=== PATIENT | female | born 1960 | race Hispanic/Latino ===

== ENCOUNTER 2018-06-13 09:56 | Observation (INO) | payer BC ==
[~2018-06-13] VITALS: Ht 157.5 cm; Wt 76.2 kg
[~2018-06-13 09:56] MED LIST: GLYBURIDE-METF1 EAC1 PO
[2018-06-13] MEDS ORDERED: SODIUM CHLORIDE 0.9% 1000ML 1,000 ML IV STA (10:21)
[2018-06-13 10:27] LABS: BASOPHILS # (AUTO) 0.1 (0.0-0.1); BASOPHILS % 1.3 % (0.0-1.0); EOSINOPHILS # (AUTO) 0.2 (0.0-0.4); EOSINOPHILS % 2.4 % (0.0-6.0); HEMATOCRIT 41.6 % (34.2-44.1); HEMOGLOBIN 14.4 g/dL (12.0-16.0); LYMPHOCYTES % 23.9 % (18.0-39.1); MEAN CORPUSCULAR HEMOGLOBIN 31.1 pg (28-32); MEAN CORPUSCULAR HGB CONC 34.6 g/dL (31-35); MEAN CORPUSCULAR VOLUME 89.8 fL (81-99); MONOCYTES # (AUTO) 0.7 (0.2-0.8); MONOCYTES % 8.1 % (4.4-11.3); NEUTROPHILS # (AUTO) 5.4 (2.1-6.9); NEUTROPHILS % 63.9 % (38.7-80.0); PLATELET COUNT 204 x10e3/uL (140-360); RED BLOOD COUNT 4.63 x10e6/uL (3.6-5.1); RED CELL DISTRIBUTION WIDTH 12.2 % (11.7-14.4)
[2018-06-13] MEDS ORDERED: ASPIRIN 81 MG CHEW TAB PO ONE (10:30)
[2018-06-13 10:35] LABS: INR 1.03; PROTHROMBIN TIME 12.7 seconds (11.9-14.5)
[2018-06-13 10:36] LABS: PARTIAL THROMBOPLASTIN TIME 27.3 seconds (23.8-35.5)
[2018-06-13 10:45] LABS: ALANINE AMINOTRANSFERASE 83 IU/L (0-55); ALBUMIN 3.6 g/dL (3.5-5.0); ALBUMIN/GLOBULIN RATIO 0.8 (0.8-2.0); ALKALINE PHOSPHATASE 129 IU/L (40-150); BLOOD UREA NITROGEN 23 mg/dL (7-26); BUN/CREATININE RATIO 24 (6-25); CALCIUM 9.7 mg/dL (8.4-10.2); CARBON DIOXIDE 24 mmol/L (22-29); CHLORIDE 100 mmol/L (98-107); CREATINE KINASE 125 IU/L (29-168); CREATININE, SERUM 0.97 mg/dL (0.57-1.11); EST GLOMERULAR FILTRATION RATE 59 ML/MIN (60-); GLUCOSE 160 mg/dL (74-118); SODIUM 137 mmol/L (136-145)
[2018-06-13] MEDS ORDERED: METOPROLOL TARTRATE INJ 1 MG/ML VIAL IV ONE ×2 (11:30→13:15)
--- NOTE | 2018-06-13 11:36 | Diagnostic Imaging Report ---
PROCEDURE: A single AP view of the chest. COMPARISON: None. INDICATIONS: PALPITATIONS FINDINGS: Lines/tubes: None. Lungs: Low lung volumes. No focal consolidation. Pleura: There is no pleural effusion or pneumothorax. Heart and mediastinum: The cardiac silhouette is mild prominence on this AP view. Bones: No acute bony abnormality. IMPRESSION: Limited by shallow inspiration. No definite focal consolidation. Dictated by: Viktor Lynch M.D. on 06/13/2018 at 11:42 Electronically approved by: Viktor Lynch M.D. on 06/13/2018 at 11:42
--- NOTE | 2018-06-13 12:45 | Diagnostic Imaging Report ---
EXAM: CT Chest WITH contrast (PE Protocol) INDICATION: \S\chest pain, SOB and tachycardia + d-dimer \S\[id number] \S\1200 \S\Y COMPARISON: None TECHNIQUE: Chest was scanned utilizing a multidetector helical scanner from the lung apex through the level of the diaphragm after administration of IV contrast. Thin section reconstructions were obtained with special concentration on the pulmonary arteries. Coronal and sagittal reformations were obtained. Pulmonary embolism protocol was performed. IV CONTRAST: 100 mL of Isovue-370 COMPLICATIONS: None RADIATION DOSE: Total DLP: 481.02 mGy*cm Estimated effective dose: (DLP x 0.014 x size factor) mSv CTDIvol has been reviewed. It is below the limits set by the Radiation Protocol Committee (RPC). FINDINGS: LINES/ TUBES: None. LUNGS AND AIRWAYS: No filling defect is identified within the pulmonary arteries to the segmental level. Mild background lung haziness, suggestive of mild interstitial edema. Lingular and left base linear atelectasis/scarring. Airways are normal. PLEURA: The pleural spaces are clear. HEART AND MEDIASTINUM: The thyroid gland is normal. No mediastinal, hilar or axillary lymphadenopathy. The heart is normal in size.. There is no pericardial effusion. . Main pulmonary artery measures 3.2 cm in diameter, suggestive of pulmonary hypertension. Atherosclerotic calcification of coronary arteries. UPPER ABDOMEN: Cholecystectomy. Mild splenomegaly. BONES: The visualized bony thorax is within normal limits. SOFT TISSUES: Bilateral breast nodules and calcifications. IMPRESSION: 1. No pulmonary emboli. 2. Mild background lung haziness, suggestive of mild interstitial edema. 3. Bilateral breast nodules and calcifications. Recommend correlation with mammography. Signed by: Dr. Viktor Lynch MD on 06/13/2018 12:41 PM
[2018-06-13] MEDS ORDERED: ONDANSETRON HCL INJ 2 MG/ML VIAL IV PRN (13:45)
[2018-06-13] MEDS ORDERED: DEXTROSE 50% SYRINGE 50 ML IV PRN (13:45)
[2018-06-13] MEDS ORDERED: MORPHINE SULFATE 2 MG/ML SYR IV PRN (13:45)
[2018-06-13] MEDS: METOPROLOL TARTRATE 50 MG TAB PO SCH ×3 (13:46→19:45)
[2018-06-13] MEDS ORDERED: SODIUM CHLORIDE 0.9% 1000ML 1,000 ML IV SCH (14:15)
[2018-06-13] MEDS: INSULIN REGULAR, HUMAN 100 UNIT/1 ML 3ML VIAL SQ SCH ×2 (16:30→20:41)
[2018-06-13 17:14] VITALS: BP 123/77
[2018-06-13] MEDS ORDERED: ZESTORETIC 10-1 EAC1 (17:50)
[2018-06-13] MEDS ORDERED: GABAPENTIN600 MG (17:50)
[2018-06-13] MEDS ORDERED: TEMAZEPAM15 MG (17:50)
[2018-06-13] MEDS ORDERED: XIGDUO XR (17:52)
[2018-06-13 19:23] LABS: CREATINE KINASE 132 IU/L (29-168)
[2018-06-13] MEDS ORDERED: SODIUM CHLORIDE 0.9% 1000ML 1,000 ML SCH (19:30)
[2018-06-13] MEDS: SODIUM CHLORIDE 0.9% 1000ML 1,000 ML SCH (19:45)
[2018-06-13 20:00] VITALS: BP 144/92
--- NOTE | 2018-06-13 21:05 | Consultation ---
DATE OF CONSULTATION: June 13, 2018 CARDIAC CONSULTATION REASON FOR CONSULTATION: Tachycardia, shortness of breath, chest pressure, chest tightness. HISTORY: Delightful 58-year-old lady, who is known with longstanding history of diabetes mellitus for the last 27 years hypertension for the same time. For a month or so, she noted episodic chest pressure, chest tightness with tachycardia. She felt palpitation and she felt chest pressure, chest tightness. This was repetitive. Today, she felt dizzy and she has felt unwell. She came to the emergency room. She was tachycardiac with heart rate of 140. She was given 5 mg Lopressor, 2 g of IV fluid with no relief in her tachycardia. She is admitted for further management. Cardiac consultation is obtained. Her first set of cardiac enzymes is normal. Her BNP is normal. Her TSH was also normal. D-dimer was mildly elevated. CT scan was done, which showed no evidence of pulmonary embolism, coronary calcifications are noted. Cardiac consultation is obtained. I visited with the patient, who she denied having any chest pain now. She is still feeling a little bit weak. She came in with history of 1 month's duration. Her symptoms mainly consistent of palpitation, easy fatigability. She needs to sit and to relax. There is no history of definite anginal chest pain. There is no history of recent travel. There is no history of pleuritic chest pain. There is no cough, no hemoptysis. REVIEW OF SYSTEMS: Extensive to all systems. Will be summarized for clarity. CARDIAC: As per above. PULMONARY: No cough, no hemoptysis as described above. GI: No hematemesis, no melena. : No hematuria, no dysuria. NEUROMUSCULAR: No seizure activity, no weakness, no headaches. GENERAL: Patient is very weak. SOCIAL HISTORY: She is nonsmoker. She is [id number]. She does have excellent family support. She works at [employer]. HOME MEDICATIONS: Includes 1. Gabapentin 600 mg a day. 2. Lisinopril/hydrochlorothiazide 10 and 12.5 one tablet a day. 3. Xigduo 10 per 1000 one tablet twice a day. 4. Temazepam p.r.n. ALLERGIES: NONE. PAST MEDICAL HISTORY 1. Diabetes mellitus for 27 years. 2. Hypertension for the same time. 3. Right and left carpal tunnel surgery. 4. Cholecystectomy. 5. Hysterectomy. PHYSICAL EXAM VITALS: Height of 5'2. Weight of 168 pounds. Blood pressure 120/70. Heart rate of 140. Respiratory rate of 18. Temperature of 98 Fahrenheit. HEENT: Pupils are equal reactive. NECK: No elevation of jugular venous pulsation. No bruit. CHEST: Clear to auscultation and percussion. HEART: PMI 5th left intercostal space. Normal 1st and 2nd heart sounds. ABDOMEN: Soft with good bowel sounds. EXTREMITIES: No cyanosis. No clubbing. No edema. NEUROLOGIC: Awake, alert, oriented. No motor or sensory deficit. LABORATORY DATA: Sodium of 147, potassium of 4, BUN 23, creatinine of 0.97. Glucose of 160. White blood cell count of 8.4 hemoglobin 14.4, hematocrit 42%, platelet count of 204,000. BNP of only 74. TSH is normal at 1.5. D-dimer of 0.54. CT of chest showed no PE, calcified coronary, calcification is noted in both breasts. IMPRESSIONS AND PLAN 1. Tachycardia. No clear-cut etiology. It looks like inappropriate sinus tachycardia. Atrial flutter is a very high probability. Another probably is atrioventricular lisa re-entry tachycardia. 2. Hypertension. 3. Diabetes mellitus. 4. Patient definitely is a prime to have coronary artery disease furthermore this further confirmed by the coronary calcification on her computerized axial tomography scan. 5. Peripheral neuropathy. Cardiac-cantu, will maintain patient on aspirin, will maintain patient on beta-nahid, will give patient IV fluid. Will repeat her echocardiogram. Will repeat her cardiac enzymes. Will repeat her lab. Pending on her course, further steps to be done. An echocardiogram is also ordered. Differential diagnoses are discussed and explained at length to the patient, her daughter, and her son, and [id number] at bedside. Questions are answered. Job#: [id number] CQ
[2018-06-13 21:22] LABS: BILIRUBIN,URINE NEGATIVE (NEGATIVE); CLARITY,URINE CLEAR (CLEAR); COLOR,URINE YELLOW (YELLOW); KETONES,URINE NEGATIVE (NEGATIVE); LEUKOCYTE ESTERASE ,URINE NEGATIVE (NEGATIVE); NITRITE,URINE NEGATIVE (NEGATIVE); PROTEIN,URINE DIPSTICK NEGATIVE (NEGATIVE); URINE UROBILINOGEN 0.2 mg/dL (0.2 - 1)
[2018-06-13 21:40] LABS: BACTERIA,URINE FEW /HPF; EPITHELIAL CELLS,URINE FEW /LPF
[2018-06-13 22:05] VITALS: BP 144/92
[2018-06-13 22:06] VITALS: BP 144/92
[2018-06-14] VITALS: BP 108/72
[2018-06-14] MEDS: METOPROLOL TARTRATE 50 MG TAB PO SCH ×2 (01:22→05:52)
[2018-06-14 04:00] VITALS: BP 103/59
[2018-06-14 05:20] LABS: BASOPHILS # (AUTO) 0.1 (0.0-0.1); EOSINOPHILS # (AUTO) 0.3 (0.0-0.4); EOSINOPHILS % 3.4 % (0.0-6.0); HEMATOCRIT 38.6 % (34.2-44.1); LYMPHOCYTES # (AUTO) 2.5 (1.0-3.2); LYMPHOCYTES % 31.9 % (18.0-39.1); MEAN CORPUSCULAR HEMOGLOBIN 31.3 pg (28-32); MEAN CORPUSCULAR HGB CONC 33.7 g/dL (31-35); MEAN CORPUSCULAR VOLUME 92.8 fL (81-99); MONOCYTES # (AUTO) 0.8 (0.2-0.8); MONOCYTES % 10.3 % (4.4-11.3); NEUTROPHILS # (AUTO) 4.1 (2.1-6.9); PLATELET COUNT 209 x10e3/uL (140-360); RED BLOOD COUNT 4.16 x10e6/uL (3.6-5.1); RED CELL DISTRIBUTION WIDTH 12.4 % (11.7-14.4)
[2018-06-14] MEDS: SODIUM CHLORIDE 0.9% 1000ML 1,000 ML SCH (05:52)
[2018-06-14 06:03] LABS: CREATINE KINASE MB 0.9 ng/mL (0-5.0)
--- NOTE | 2018-06-14 06:06 | Diagnostic Imaging Report ---
EXAMINATION: CHEST SINGLE (PORTABLE) INDICATION: Chest pain. COMPARISON: 06/13/2018, CT of the chest FINDINGS: TUBES and LINES: None. LUNGS: Lungs are well inflated. Lungs are clear. There is no evidence of pneumonia or pulmonary edema. PLEURA: No pleural effusion or pneumothorax. HEART AND MEDIASTINUM: The cardiomediastinal silhouette is unremarkable. BONES AND SOFT TISSUES: No acute osseous lesion. Soft tissues are unremarkable. UPPER ABDOMEN: No free air under the diaphragm. IMPRESSION: No acute thoracic abnormality. Signed by: Dr. Torey Patton M.D. on 06/14/2018 6:03 AM
[2018-06-14 06:18] LABS: ALANINE AMINOTRANSFERASE 65 IU/L (0-55); ALBUMIN 3.1 g/dL (3.5-5.0); ALBUMIN/GLOBULIN RATIO 0.8 (0.8-2.0); ALKALINE PHOSPHATASE 83 IU/L (40-150); BLOOD UREA NITROGEN 20 mg/dL (7-26); BUN/CREATININE RATIO 25 (6-25); CALCIUM 8.9 mg/dL (8.4-10.2); CARBON DIOXIDE 25 mmol/L (22-29); CHLORIDE 102 mmol/L (98-107); CREATININE, SERUM 0.81 mg/dL (0.57-1.11); EST GLOMERULAR FILTRATION RATE > 60 ML/MIN (60-); GLUCOSE 113 mg/dL (74-118); SODIUM 135 mmol/L (136-145)
[2018-06-14 06:31] LABS: CHOL/HDL RATIO 2.6 (3.0-3.6)
[2018-06-14] MEDS: INSULIN REGULAR, HUMAN 100 UNIT/1 ML 3ML VIAL SQ SCH (07:30)
[2018-06-14] MEDS ORDERED: IOPAMIDOL 370 MG/ML 200 ML INFUS..BTL INJ ONE (08:30)
[2018-06-14] MEDS ORDERED: SODIUM CHLORIDE 0.9% 50ML 50 ML ONE (08:30)
[2018-06-14 09:30] VITALS: BP 111/64
[2018-06-14] MEDS ORDERED: METOPROLOL TART50 MG PO (10:34)
[2018-06-14] MEDS ORDERED: ASPIR 8181 MG PO (10:41)
[2018-06-14 11:30] VITALS: BP 151/71
== END 2018-06-14 12:21 | disposition home or self-care (01) ==
LOC: ER 09:56 → ERHOLD 13:35 → IMCU 16:46
PROVIDERS: ADMIT Family Medicine; ATTEND Family Medicine
DX: R07.89 Other chest pain (principal); I47.1 Supraventricular tachycardia; R94.31 Abnormal electrocardiogram [ECG] [EKG]; I10 Essential (primary) hypertension; E11.42 Type 2 diabetes mellitus with diabetic polyneuropathy; R42 Dizziness and giddiness; E78.5 Hyperlipidemia, unspecified; Z83.3 Family history of diabetes mellitus; Z82.49 Family history of ischemic heart disease and other diseases of the circulatory system
CPT/HCPCS: 36415 ×2; 71045 ×2; 71260; 80053 ×2; 80061; 81001; 82550 ×2; 82553 ×2; 82948 ×2; 83880; 84443; 84484 ×2; 85025 ×2; 85379; 85610; 85730; 93005; 93306; 99284; G0378 ×2; J2405; J7030 ×2; Q9967

== ENCOUNTER 2019-12-05 02:42 | Emergency (ER) | payer BC ==
[~2019-12-05] VITALS: Ht 157.5 cm; Wt 76.2 kg
[~2019-12-05 02:42] MED LIST changes: +ASPIR 8181 MG PO; +GABAPENTIN600 MG; +METOPROLOL TART50 MG PO; +TEMAZEPAM15 MG; +XIGDUO XR; +ZESTORETIC 10-1 EAC1
[2019-12-05] MEDS ORDERED: ONDANSETRON HCL INJ 2MG/ML 2ML 2 MG/ML VIAL IV STA (02:58)
[2019-12-05] MEDS ORDERED: MECLIZINE HCL 12.5 MG TAB PO ONE (03:00)
[2019-12-05 03:32] LABS: HEMATOCRIT 43.8 % (34.2-44.1); HEMOGLOBIN 15.5 g/dL (12.0-16.0); MEAN CORPUSCULAR HEMOGLOBIN 32.1 pg (28-32); MEAN CORPUSCULAR HGB CONC 35.4 g/dL (31-35); MEAN CORPUSCULAR VOLUME 90.7 fL (81-99); NEUTROPHILS % 68.7 % (38.7-80.0); PLATELET COUNT 252 x10e3/uL (140-360); RED BLOOD COUNT 4.83 x10e6/uL (3.6-5.1); RED CELL DISTRIBUTION WIDTH 11.9 % (11.7-14.4)
[2019-12-05 03:33] LABS: BASOPHILS # (AUTO) 0.1 (0.0-0.1); BASOPHILS % 1.1 % (0.0-1.0); EOSINOPHILS # (AUTO) 0.2 (0.0-0.4); EOSINOPHILS % 1.8 % (0.0-6.0); LYMPHOCYTES # (AUTO) 2.4 (1.0-3.2); LYMPHOCYTES % 18.4 % (18.0-39.1); MONOCYTES # (AUTO) 1.3 (0.2-0.8); MONOCYTES % 9.8 % (4.4-11.3); NEUTROPHILS # (AUTO) 8.9 (2.1-6.9)
--- NOTE | 2019-12-05 03:50 | Diagnostic Imaging Report ---
History:Dizziness, weakness Comparison studies:None Technique: Axial images were obtained from the skull base to the vertex. Coronal and sagittal images reconstructed from the axial data. Intravenous contrast: None Dose modulation, iterative reconstruction, and/or weight based adjustment of the mA/kV was utilized to reduce the radiation dose to as low as reasonably achievable. Findings: Scalp/skull: No abnormalities. Extra-axial spaces: Small left retrovermian arachnoid cyst. No fluid collections. Brain sulci: Age-appropriate. Ventricles: Age appropriate. No hydrocephalus. Parenchyma: No abnormal densities. No masses, hemorrhage, acute or chronic cortical vascular insults. Sellar/suprasellar region: No abnormalities. Craniocervical junction: Patent foramen magnum. No Chiari one malformation. Incidental findings: Atherosclerotic calcifications in the carotid siphons and vertebral arteries . Impression: No acute abnormalities. Signed by: DR Ricci Hurtado M.D. on 12/05/2019 3:48 AM
[2019-12-05 03:51] LABS: SODIUM 132 mmol/L (136-145)
[2019-12-05 03:52] LABS: ALANINE AMINOTRANSFERASE 93 IU/L (0-55); ALBUMIN 4.2 g/dL (3.5-5.0); ANION GAP 21.9 mmol/L (8-16); BLOOD UREA NITROGEN 28 mg/dL (7-26); BUN/CREATININE RATIO 17 (6-25); CALCIUM 9.7 mg/dL (8.4-10.2); CARBON DIOXIDE 24 mmol/L (22-29); CHLORIDE 90 mmol/L (98-107); CREATININE, SERUM 1.66 mg/dL (0.57-1.11); EST GLOMERULAR FILTRATION RATE 32 ML/MIN (60-); GLUCOSE 169 mg/dL (74-118); POTASSIUM 3.9 mmol/L (3.5-5.1)
[2019-12-05 03:53] LABS: ALKALINE PHOSPHATASE 94 IU/L (40-150); CREATINE KINASE 75 IU/L (29-168)
[2019-12-05] MEDS ORDERED: SODIUM CHLORIDE 0.9% 1000ML 1,000 ML IV ONE (04:15)
[2019-12-05 05:29] LABS: CLARITY,URINE SL CLOUDY (CLEAR); COLOR,URINE YELLOW (YELLOW)
[2019-12-05 05:30] LABS: KETONES,URINE NEGATIVE (NEGATIVE); LEUKOCYTE ESTERASE ,URINE MODERATE (NEGATIVE); NITRITE,URINE NEGATIVE (NEGATIVE); PROTEIN,URINE DIPSTICK TRACE (NEGATIVE); URINE UROBILINOGEN 0.2 mg/dL (0.2 - 1)
[2019-12-05 05:31] LABS: BILIRUBIN,URINE MODERATE (NEGATIVE)
[2019-12-05 05:40] LABS: BACTERIA,URINE FEW /HPF; EPITHELIAL CELLS,URINE FEW /LPF; WBC,URINE (MAN) 21-50 /HPF (0-5)
== END 2019-12-05 06:09 | disposition home or self-care (01) ==
LOC: ER 02:42
DX: H81.4 Vertigo of central origin (principal); R11.2 Nausea with vomiting, unspecified; N39.0 Urinary tract infection, site not specified
CPT/HCPCS: 36415; 70450; 80053; 81001; 82550; 82553; 84484; 85025; 93005; 99284; J2405; J7030; J8597

== ENCOUNTER 2019-12-21 09:31 | Observation (INO) | payer BC ==
[~2019-12-21] VITALS: Ht 157.5 cm; Wt 72.6 kg
[2019-12-21] MEDS ORDERED: SODIUM CHLORIDE 0.9% 1000ML 1,000 ML IV STA (09:36)
[2019-12-21 10:06] LABS: BASOPHILS # (AUTO) 0.1 (0.0-0.1); BASOPHILS % 0.7 % (0.0-1.0); EOSINOPHILS # (AUTO) 0.1 (0.0-0.4); HEMATOCRIT 44.2 % (34.2-44.1); HEMOGLOBIN 15.3 g/dL (12.0-16.0); LYMPHOCYTES % 16.9 % (18.0-39.1); MEAN CORPUSCULAR HEMOGLOBIN 31.4 pg (28-32); MEAN CORPUSCULAR HGB CONC 34.6 g/dL (31-35); MEAN CORPUSCULAR VOLUME 90.8 fL (81-99); MONOCYTES % 8.2 % (4.4-11.3); NEUTROPHILS # (AUTO) 8.4 (2.1-6.9); NEUTROPHILS % 72.9 % (38.7-80.0); PLATELET COUNT 242 x10e3/uL (140-360); RED BLOOD COUNT 4.87 x10e6/uL (3.6-5.1); RED CELL DISTRIBUTION WIDTH 11.4 % (11.7-14.4)
[2019-12-21 10:51] LABS: ALBUMIN 4.1 g/dL (3.5-5.0); ANION GAP 16.6 mmol/L (8-16); CALCIUM 9.7 mg/dL (8.4-10.2); CREATININE, SERUM 1.26 mg/dL (0.57-1.11); POTASSIUM 3.6 mmol/L (3.5-5.1)
[2019-12-21 11:01] LABS: CREATINE KINASE MB 1.3 ng/mL (0-5.0)
--- NOTE | 2019-12-21 12:19 | Diagnostic Imaging Report ---
CT BRAIN WO HISTORY: Syncope COMPARISON: Head CT 12/05/2019 TECHNIQUE: Noncontrast axial scans were obtained from skull base to the vertex. Coronal and sagittal reconstructions obtained from the axial data. One or more of the following dose reduction techniques were used: Automated exposure control, adjustment of the mA and/or kV according to patient size, and/or utilization of iterative reconstruction technique. DISCUSSION: Scalp/Skull: Unremarkable. Brain sulci: Appropriate for patient's age. Ventricles: Normal in size and configuration. No hydrocephalus. Extra-axial spaces: Small medial left retrocerebellar arachnoid cyst has not significantly changed; there is no significant mass effect. No additional masses or fluid collections. Carotid siphon and vertebral artery calcified effusions are present. Parenchyma: Mild periventricular white matter hypodensities are likely chronic microvascular ischemic changes. Otherwise, no mass, hemorrhage, or large vascular territory acute infarct. Dural sinuses: No abnormal densities. Sellar/Suprasellar region: Intact. Skull base: Intact. Incidental findings: None. IMPRESSION: 1. No acute intracranial abnormalities. 2. Mild supratentorial chronic microvascular ischemic change. Signed by: Dr. Bob Dominguez M.D. on 12/21/2019 12:16 PM
--- NOTE | 2019-12-21 12:30 | Diagnostic Imaging Report ---
Exam: CT chest Clinical history: Syncope Technique: Helical images of the chest were obtained after IV contrast administration DOSE REDUCTION: The exams was performed according to the departmental dose-optimization program which includes automated exposure control, adjustment of the mA and/or kV according to patient size and/or use of iterative reconstruction technique. Findings: There is no evidence of early consolidation, nodule, edema, or pneumothorax. Mild bibasilar atelectasis are noted. The tracheal bronchial tree is clear. The cardiac size is within normal limits. The great vessels are normal in caliber and configuration. There is no evidence of mediastinal or hilar lymphadenopathy. A 1.5 cm soft tissue density nodule is noted in the right breast. Correlation with mammography is recommended. The visualized upper abdominal solid organs are unremarkable. Impression: 1. There is a 1.5 cm right breast nodule as described. Correlation with mammography is recommended Signed by: Dr. Rodrigo Cortes MD on 12/21/2019 12:28 PM
--- NOTE | 2019-12-21 13:25 | NUR ---
received report from PAINTING CONTRACTOR; awaiting pt's arrival to room 289.
--- NOTE | 2019-12-21 13:58 | NUR ---
pt arrived to room 289, family at bedside. pt awake, alert, no signs of distress. pt ambulated without difficulty from stretcher to bed with RN at bedside.
[2019-12-21 14:01] VITALS: BP 132/89
[2019-12-21 14:02] VITALS: BP_SYST 130; BP_SYST 132; BP_DIAS 85; BP_DIAS 89
--- NOTE | 2019-12-21 14:38 | Diagnostic Imaging Report ---
CT LUMBAR SPINE WO HISTORY: Low back pain COMPARISON: None. TECHNIQUE: Axial CT images of the lumbar spine were obtained without contrast. Coronal and sagittal reconstructions obtained from the axial data. One or more of the following dose reduction techniques were used: Automated exposure control, adjustment of the mA and/or kV according to patient size, and/or utilization of iterative reconstruction technique. DISCUSSION: There are 5 nonrib-bearing lumbar vertebral bodies. Lumbar lordosis is preserved. There is no significant scoliosis or subluxation. There are mildly displaced fractures of the left L1, left L2, and left L3 transverse processes. No other fracture, compression deformity, or destructive osseous lesion is seen. No gross spinal canal mass is seen. The paravertebral and paraspinal soft tissues are unremarkable. Mild multilevel spondylosis is present without gross canal or foraminal stenosis. Mild bilateral sacroiliac degenerative changes are present as well. Contrast is seen in the renal collecting systems. Mildly distended, mildly opacified bladder is partially imaged. Aortoiliac calcified atherosclerosis is present. IMPRESSION: 1. Mildly displaced fractures of the left L1, left L2, and left L3 transverse processes. 2. No other acute osseous abnormalities. 3. Mild multilevel spondylosis. Signed by: Dr. Bob Dominguez M.D. on 12/21/2019 2:35 PM
[2019-12-21] MEDS ORDERED: JANUMET 50-1,01 EACH PO (15:31)
[2019-12-21] MEDS ORDERED: PANTOPRAZOLE SO40 MG PO (15:31)
[2019-12-21] MEDS ORDERED: PROTRIPTYLINE H10 MG PO (15:31)
[2019-12-21 16:00] VITALS: BP 132/89
[2019-12-21 16:11] LABS: CREATINE KINASE MB 1.2 ng/mL (0-5.0)
[2019-12-21 16:44] LABS: FREE THYROXINE INDEX 3.3156 (1.4-3.8); THYROID STIMULATING HORMONE 1.512 uIU/mL (0.350-4.940)
[2019-12-21] MEDS: METOPROLOL TARTRATE 50 MG TAB PO SCH (18:04)
[2019-12-21] MEDS: SODIUM CHLORIDE 0.9% 1000ML 1,000 ML IV SCH (18:04)
[2019-12-21] MEDS: KETOROLAC TROMETHAMINE 30 MG/ML VIAL IV PRN (18:05)
--- NOTE | 2019-12-21 19:05 | NUR ---
RECEIVED THE PATIENT IN REPORT.STABLE CONDITION.
[2019-12-21] MEDS ORDERED: SODIUM CHLORIDE 0.9% 50ML 50 ML ONE (19:54)
[2019-12-21] MEDS ORDERED: IOPAMIDOL 370 MG/ML 200 ML INFUS..BTL INJ ONE (19:55)
[2019-12-21 20:02] VITALS: BP 135/75
[2019-12-21 20:04] LABS: CREATINE KINASE MB 1.2 ng/mL (0-5.0)
[2019-12-21 20:29] VITALS: BP 135/75
--- NOTE | 2019-12-21 21:53 | History and Physical ---
CHIEF COMPLAINT: A 59-year-old female who comes with falls and syncopal episode. HISTORY OF PRESENTING ILLNESS: Ms. Leigh Woodward is with history of diabetes mellitus, hypertension, history of SVT, who was in the usual state of health until the patient had started with falls, this happened about six months ago, but has been more frequent. In the last one week, the patient has fall twice. The patient also has been recently started on protriptyline for her sciatica by her neurologist. CURRENT MEDICATIONS: 1. Protriptyline 10 mg 3 times a day. 2. Metoprolol 50 mg twice a day. 3. daily. 4. Temazepam 50 mg at nighttime. She also take Trulicity injections once a week. PAST SURGICAL HISTORY: History of hysterectomy and gallbladder removal. SOCIAL HISTORY: No EtOH, no IV drug abuse. The patient has been feeling little bit weak since last three weeks according to . REVIEW OF SYSTEMS: Negative for chest pain. No shortness of breath. No nausea. No vomiting. No diarrhea. No constipation. No rectal bleeding. No hematochezia. No hematemesis. No palpitation. No blurry vision. No diplopia. Positive for falls. The patient has no loss of consciousness with any episodes. The patient also complains of some back pain from the falls. ALLERGIES: NO DRUG ALLERGIES NOTED. PHYSICAL EXAMINATION: VITAL SIGNS: Temperature is 98.3, pulse of 84, respirations of 18, blood pressure is 132/89, pulse oximetry of 98, O2 on room air. HEENT: Normocephalic, atraumatic. Pupils are reactive. No nystagmus present. CVS: S1 and S2 normal. Regular rate and rhythm. No murmurs present. ABDOMEN: Nontender, nondistended. EXTREMITIES: No clubbing, no cyanosis, no edema. NEUROLOGICAL: Alert and oriented x3. The patient's cranial nerves normal. Cerebellar signs are positive. Strength is normal. Reflexes are normal too. LABORATORY [place]: [place] [address], hemoglobin of 15.3, hematocrit of 44.2 and slight left shift present. Chemistry, sodium 135, potassium is 3.6, BUN of 25, creatinine of 1.26, and glucose of 160. IMAGING STUDIES: Lumbar CT shows mildly displaced fracture of the L1, L2, L3 transverse process from the fall. A CT of the chest shows 1.5 cm right breast nodule, correlation with mammogram not wanted and CT of the brain shows no acute intracranial abnormalities, mild supratentorial chronic microvascular ischemic changes. ASSESSMENT: Ms. Leigh Woodward with. 1. Syncopal episodes. 2. Dizziness. 3. History of supraventricular tachycardia. 4. Hypertension. 5. Diabetes mellitus. 6. History of low back pain. 7. Transfers process fractures of L1, L2 and L3. PLAN: A consult with Cardiology has been done. We will order an echocardiogram, MRI of the brain and MRA of the neck will be done. We will take her off for protriptyline at this point of time, insulin sliding scale for diabetes mellitus. Restart her hypertensive medication and for SVT. Further recommendation per clinical course. We will continue monitor the patient and neuro checks will be done and also vital signs routinely will be checked. Labs will be ordered. The patient also has acute on chronic renal failure. We will go ahead and hydrate the patient about 100 mL an hour of normal saline for about 2 L. Further recommendation per clinical course. MD KP LedezmaJ/MODL /[id number]
[2019-12-21 23:45] VITALS: BP 151/83
--- NOTE | 2019-12-22 00:56 | Diagnostic Imaging Report ---
EXAMINATION: MR angiogram of the [place] and Neck CLINICAL HISTORY: Syncope, worsening dizziness. COMPARISON: None available TECHNIQUE: 3D TOF and 2D-TOF images were obtained of the brain and neck. MIP images of the arteries were isolated into anterior-posterior and right and left groups respectively. The head source images, reformatted axial and coronal images, and customer account representative projections of the MIP images through 180 degrees of rotation and tumbling of the brain were reviewed. The neck source images and customer account representative projections of the MIP images through 180 degrees of rotation of the neck were reviewed MRA OF THE [place] : The distal internal carotid, distal vertebral, basilar, and cerebral arteries are patent. No significant stenosis, occlusion, aneurysm, or arteriovenous malformation is seen. Anatomic variation: Anterior Communicating Artery: Patent Posterior Communicating Arteries: Patent on the left, not well-visualized on the right. Vertebral arteries: Codominant MRA OF THE NECK: If present, stenosis of the carotid bulbs is measured based on NASCET criteria i.e area of maximum stenosis compared to the cervical ICA distal to the bulb. Right Carotid Artery: The common carotid, carotid bulb, internal and external carotid arteries at the level of the neck are normal in caliber, and patent, no evidence of stenoses. Left Carotid Artery: The common carotid, carotid bulb, internal and external carotid arteries at the level of the neck are normal in caliber, and patent, no evidence of stenoses. Vertebral Arteries: Both are normal in morphology and caliber. Both are codominant. No significant stenosis is seen. IMPRESSION: 1. Normal MR angiography of the head 2. Normal MR angiogram of the neck. Signed by: Dr. Omayra Oconnor M.D. on 12/22/2019 12:53 AM
--- NOTE | 2019-12-22 00:56 | Diagnostic Imaging Report ---
EXAMINATION: MR angiogram of the [place] and Neck CLINICAL HISTORY: Syncope, worsening dizziness. COMPARISON: None available TECHNIQUE: 3D TOF and 2D-TOF images were obtained of the brain and neck. MIP images of the arteries were isolated into anterior-posterior and right and left groups respectively. The head source images, reformatted axial and coronal images, and outside energy sales representatives projections of the MIP images through 180 degrees of rotation and tumbling of the brain were reviewed. The neck source images and outside energy sales representatives projections of the MIP images through 180 degrees of rotation of the neck were reviewed MRA OF THE [place] OF [place] : The distal internal carotid, distal vertebral, basilar, and cerebral arteries are patent. No significant stenosis, occlusion, aneurysm, or arteriovenous malformation is seen. Anatomic variation: Anterior Communicating Artery: Patent Posterior Communicating Arteries: Patent on the left, not well-visualized on the right. Vertebral arteries: Codominant MRA OF THE NECK: If present, stenosis of the carotid bulbs is measured based on NASCET criteria i.e area of maximum stenosis compared to the cervical ICA distal to the bulb. Right Carotid Artery: The common carotid, carotid bulb, internal and external carotid arteries at the level of the neck are normal in caliber, and patent, no evidence of stenoses. Left Carotid Artery: The common carotid, carotid bulb, internal and external carotid arteries at the level of the neck are normal in caliber, and patent, no evidence of stenoses. Vertebral Arteries: Both are normal in morphology and caliber. Both are codominant. No significant stenosis is seen. IMPRESSION: 1. Normal MR angiography of the head 2. Normal MR angiogram of the neck. Signed by: Dr. Omayra Oconnor M.D. on 12/22/2019 12:53 AM
[2019-12-22] MEDS: SODIUM CHLORIDE 0.9% 1000ML 1,000 ML IV SCH (02:34)
[2019-12-22] MEDS: KETOROLAC TROMETHAMINE 30 MG/ML VIAL IV PRN ×2 (02:36→11:00)
--- NOTE | 2019-12-22 03:00 | NUR ---
Pain medication given.[id number].stable condition.
[2019-12-22 04:03] VITALS: BP 122/67
--- NOTE | 2019-12-22 07:04 | NUR ---
Bed side shift report given to oncoming Rn.stable condition.
[2019-12-22 07:14] LABS: BASOPHILS # (AUTO) 0.1 (0.0-0.1); BASOPHILS % 0.5 % (0.0-1.0); EOSINOPHILS # (AUTO) 0.1 (0.0-0.4); EOSINOPHILS % 1.2 % (0.0-6.0); HEMATOCRIT 39.5 % (34.2-44.1); HEMOGLOBIN 13.3 g/dL (12.0-16.0); LYMPHOCYTES # (AUTO) 1.7 (1.0-3.2); LYMPHOCYTES % 17.1 % (18.0-39.1); MEAN CORPUSCULAR HEMOGLOBIN 31.1 pg (28-32); MEAN CORPUSCULAR HGB CONC 33.7 g/dL (31-35); MEAN CORPUSCULAR VOLUME 92.3 fL (81-99); MONOCYTES # (AUTO) 0.9 (0.2-0.8); NEUTROPHILS # (AUTO) 7.2 (2.1-6.9); NEUTROPHILS % 71.7 % (38.7-80.0); PLATELET COUNT 218 x10e3/uL (140-360); RED BLOOD COUNT 4.28 x10e6/uL (3.6-5.1); RED CELL DISTRIBUTION WIDTH 11.4 % (11.7-14.4)
[2019-12-22 07:23] VITALS: BP 159/79
[2019-12-22] MEDS ORDERED: PANTOPRAZOLE SOD 40 MG TABEC PO SCH (07:30)
--- NOTE | 2019-12-22 07:32 | NUR ---
BEDSIDE SHIFT REPORT RECEIVED FROM GEAR LAPPER RN. PT AWAKE, ALERT, IN STABLE CONDITION. NO SIGNS OF DISTRESS. NO COMPLAINTS AT THIS TIME. WILL CONTINUE TO MONITOR.
[2019-12-22 07:37] LABS: CREATINE KINASE MB 0.4 ng/mL (0-5.0)
[2019-12-22 07:56] LABS: ALANINE AMINOTRANSFERASE 23 IU/L (0-55); ALBUMIN 3.5 g/dL (3.5-5.0); ALBUMIN/GLOBULIN RATIO 0.9 (0.8-2.0); ALKALINE PHOSPHATASE 79 IU/L (40-150); BLOOD UREA NITROGEN 14 mg/dL (7-26); BUN/CREATININE RATIO 16 (6-25); CALCIUM 8.8 mg/dL (8.4-10.2); CARBON DIOXIDE 27 mmol/L (22-29); CHLORIDE 102 mmol/L (98-107); CREATININE, SERUM 0.85 mg/dL (0.57-1.11); EST GLOMERULAR FILTRATION RATE > 60 ML/MIN (60-); GLUCOSE 126 mg/dL (74-118); SODIUM 137 mmol/L (136-145)
[2019-12-22] MEDS ORDERED: METFORMIN HCL 500 MG TAB PO SCH (08:00)
[2019-12-22] MEDS ORDERED: SITAGLIPTIN 100 MG TAB PO SCH (08:00)
[2019-12-22 08:04] VITALS: BP 159/79
[2019-12-22] MEDS: METOPROLOL TARTRATE 50 MG TAB PO SCH (09:25)
--- NOTE | 2019-12-22 10:15 | Progress Note ---
DATE: SUBJECTIVE: The patient is a 59-year-old female who comes in with dizziness and near syncopal episode. Currently, the patient is doing better. No chest pain. No shortness of breath. No more episodes noted. The patient had been taken off protriptyline yesterday. The patient is feeling better, wants to go home. MRI/MRA of the neck and brain were done, which was negative. CT was negative. Echocardiogram is pending. The patient has a history of supraventricular tachycardia scheduled to be seen by concrete pipe making machine operator. The patient's concrete pipe making machine operator is Dr. Suhas Shaffer who will be consulted. Currently, no chest pain, no shortness of breath, no nausea, no vomiting. No diarrhea or constipation. Feeling better. OBJECTIVE: VITAL SIGNS: Temperature is 97.0, pulse of 92, respirations 16, blood pressure is 122/67, and pulse oximetry 95%. HEENT: Normocephalic and atraumatic. No nystagmus present. CVS: S1 and S2 normal. Regular rate and rhythm. ABDOMEN: Nontender and nondistended. EXTREMITIES: No clubbing, no cyanosis, no edema. NEUROLOGIC: Nonfocal. Reflexes are normal. LABORATORY DATA: White count is 11,000 yesterday, none done today, pending. Sodium 135, potassium of 3.6, glucose is 122. Troponins have been trended to be negative. ASSESSMENT: Ms. Woodward with: 1. Dizziness. 2. Near syncopal episodes. 3. History of supraventricular tachycardia. 4. History of diabetes mellitus. 5. Low back pain and transverse process fractures of L1, L2, and L3. PLAN: 1. Cardiology consult still pending. 2. We will go ahead and have Cardiology see her for monitoring. Probably need long-term monitoring of the heart rate. 3. The patient has a neurologist as an outpatient Dr. Claros, will refer her treatment for back pain and neuropathy. Again, the patient can be discharged today if cleared by Cardiology. Further recommendation per clinical course. MD KP LedezmaJ/MODL /[id number]
[2019-12-22 11:21] VITALS: BP 130/79
--- NOTE | 2019-12-22 11:59 | NUR ---
SPOKE WITH ELMA MARVIN FOR DR. YANEZ. HE STATES WE WILL KEEP PT ONE MORE DAY AND OBSERVE ON TELEMETRY AND WILL PT F/U WITH EP. Addendum: 12/22/19 at 1235 by Kim Jhaveri RN DR YANEZ ALSO CAME TO PT'S BEDSIDE AND INFORMED PT OF NODULE NOTED TO BREAST FROM CT SCAN. PT ADVISED TO F/U WITH HER PCP
[2019-12-22] MEDS ORDERED: METOPROLOL TART25 MG PO (12:24)
--- NOTE | 2019-12-22 19:43 | Consultation ---
DATE OF CONSULTATION: 12/22/2019 REASON FOR CONSULTATION: Syncope. CHIEF COMPLAINT: Dizziness, lightheadedness. HISTORY OF PRESENT ILLNESS: This is a 59-year-old female, well known to practice with history of hypertension, diabetes, and SVT in 2018. The patient was recently seen at office with complaints of lightheadedness, dizziness, and passed it out this past Wednesday. Evaluation was to be performed this week. However, the patient reports yesterday went to her PCP because continued dizziness and lightheadedness and her blood pressure was noted to be marginal, was told to go to the ER for further evaluation. The patient was seen in room in no acute distress. Family at bedside. Tele reviewed extensively showing sinus rhythm. Long discussion with the patient and family regarding evaluation, options, and the patient wishes to go home. Follow up in office for further evaluation. The patient denies any chest pain or shortness of breath. PAST MEDICAL HISTORY: Hypertension, diabetes, history of SVT in June 2018, and right leg sciatica. SURGICAL HISTORY: Cholecystectomy and partial hysterectomy. FAMILY HISTORY: Mother at age 63, history of heart disease. Father at age 36, accidental . SOCIAL HISTORY: She is . She denies any alcohol use, tobacco use. ALLERGIES: NO KNOWN ALLERGIES. MEDICATIONS: 1. Aspirin 81 mg daily. 2. Metoprolol 50 mg twice a day. 3. Janumet 50-100 twice daily. 4. Protriptyline 100 mg three times a day. REVIEW OF SYSTEMS: GENERAL: Denies any weight changes, weakness, fatigue, fevers, chills, or night sweats. SKIN: No rashes or bruises reported. HEENT: No nausea, vomiting, vision changes, blurred vision, double vision, epistaxis, sore throat, swollen neck, stiff neck, bleeding gums. CARDIAC: Denies any chest pain. Positive for dyspnea on exertion. Denies any palpitations, orthopnea, PND, or lower extremity edema. RESPIRATORY: Denies any shortness of breath, any coughing, hemoptysis. GI: Reports good appetite. No nausea, vomiting, diarrhea, constipation, melena, tarry or bloody stools. URINARY: Denies any urgency, hematuria, dysuria. VASCULAR: Denies any lower extremity edema or claudication. MUSCULOSKELETAL: Positive for generalized joint pains, back pains, left leg pain. NEUROLOGIC: Denies any numbness, tingling, tremors, or weakness. Positive for dizziness, lightheadedness, syncopal episode. HEMATOLOGY: Denies easy bruising or bleeding. ENDOCRINE: Denies any heat or cold intolerance, polyuria, polydipsia, polyphagia. PHYSICAL EXAMINATION: VITAL SIGNS: Height 62 inches, weight 160 pounds, temperature 98.1, pulse 100, respiratory rate 18, blood pressure 130/79, pulse ox 96% on room air. GENERAL: Appears reliable informant in no acute distress. SKIN: No rashes or bruises noted. HEENT: Normocephalic. Pupils are equal and reactive. Extraocular movements intact. Trachea midline. Oral mucosa pink. HEART: Regular rate and rhythm. LUNGS: Bilateral breath sounds. Clear to auscultation. ABDOMEN: Soft, nontender, and nondistended. No organomegaly noted. MUSCULOSKELETAL: Good muscle strength throughout. No lower extremity edema is noted. VASCULAR: +2 radial pulses, +2 bilateral DP/PT pulses. NEUROLOGIC: Cranial nerves 2 through 12 seem intact. LABORATORY DATA: White count 10, hemoglobin 13, hematocrit 39, and platelets 218. Chemistry, sodium 137, potassium 4.0, chloride 102, BUN 14, and creatinine 0.8. Troponin is 0.006, next 0.004, next 0.007, next 0.002. TSH 1.5. IMAGING: MRI of the head and neck showing normal angiography of the head and neck. A CT brain showing mild chronic microvascular ischemic changes. A CT chest showing a 1.5 cm right breast nodule. A CT-spine lumbar, mild displaced fracture of L1, L2, and L3 transverse process. ASSESSMENT: 1. Syncopal episode. 2. Dizziness. 3. History of SVT. 4. Diabetes. 5. Right breast nodule. PLAN: 1. The patient presents to [facility] with complaints of dizziness, lightheadedness, and syncopal episode this past Wednesday. A long discussion with the patient and family regarding evaluation. The patient wishes to go home and pursue evaluation as outpatient. 2. Tele reviewed showing sinus rhythm. 3. Copy of CT given to the patient. Needs to follow up regarding right breast nodule. 4. The patient to follow up as outpatient this coming Wednesday. Thank you very much for this consult. Seen and evaluated Copies of tests are given to patient Dictated by Leighton Moran, [employer]CRE[employer]TER [employer]MER Suhas Shaffer MD DC/LIZZIE /[id number]
== END 2019-12-22 13:04 | disposition home or self-care (01) ==
LOC: ER 09:31 → ERHOLD 11:11 → MED/SURG3 14:08
PROVIDERS: ADMIT Family Medicine; ATTEND Family Medicine
DX: R55 Syncope and collapse (principal); E11.9 Type 2 diabetes mellitus without complications; I10 Essential (primary) hypertension; S32.018A Other fracture of first lumbar vertebra, initial encounter for closed fracture; S32.028A Other fracture of second lumbar vertebra, initial encounter for closed fracture; S32.038A Other fracture of third lumbar vertebra, initial encounter for closed fracture
CPT/HCPCS: 36415 ×2; 70450; 70544; 70547; 71260; 72131; 80053 ×2; 82550 ×2; 82553 ×2; 82948 ×2; 83735; 84436; 84443; 84479; 84484 ×2; 85025 ×2; 93005; 93306; 93880; 99284; G0378 ×2; J1885 ×2; J7030 ×2; Q9967; S0164

== ENCOUNTER 2024-01-05 14:11 | Emergency (ER) | payer BC ==
[~2024-01-05] VITALS: Ht 157.5 cm; Wt 66.7 kg
[~2024-01-05 14:11] MED LIST changes: +CARDIZEM CD120 MG PO; +CYMBALTA30 MG PO; +FLUOXETINE DR90 MG PO; +JANUMET 50-1,01 EACH PO; +METOPROLOL TART25 MG PO; +MOUNJARO5 MG/0.5 M; +PANTOPRAZOLE SO40 MG PO; +PROLIA60 MG/1 ML INJ; +PROTRIPTYLINE H10 MG PO; +QUETIAPINE FUMA50 MG PO; +SYNJARDY 12.5-1 EACH PO
[2024-01-05] MEDS ORDERED: DOXYCYCLINE HY100 MG PO (15:36)
[2024-01-05 15:53] VITALS: BP 145/68; PULSE 64; RESP 16; TEMP 98; O2SAT 98
== END 2024-01-05 15:55 | disposition home or self-care (01) ==
LOC: ER 15:04
DX: Z45.2 Encounter for adjustment and management of vascular access device (principal); I10 Essential (primary) hypertension; E11.9 Type 2 diabetes mellitus without complications; K21.9 Gastro-esophageal reflux disease without esophagitis; F41.9 Anxiety disorder, unspecified
CPT/HCPCS: 99283

== ENCOUNTER 2024-09-05 03:37 | Inpatient (IN) | payer BC, MEDICARE ==
[~2024-09-05] VITALS: Ht 157.5 cm; Wt 56.7 kg
[2024-09-05] VITALS (25 sets, daily range): BP systolic 145–207; BP diastolic 89–133; PULSE 107–152; RESP 17–32; TEMP 97.6–98.8; O2SAT 100
[~2024-09-05 03:37] MED LIST changes: +DOXYCYCLINE HY100 MG PO
[2024-09-05] MEDS: SODIUM CHLORIDE 0.9% 1000ML 1,000 ML IV ONE ×2 (04:06→04:11)
[2024-09-05] MEDS ORDERED: SODIUM CHLORIDE 0.9% 1000ML 1,000 ML ONE (04:13)
[2024-09-05] MEDS: ONDANSETRON HCL INJ 2MG/ML 2ML 2 MG/ML VIAL IV STA (04:15)
[2024-09-05 04:24] LABS: BASOPHILS # (AUTO) 0.1 (0.0-0.1); BASOPHILS % 0.7 % (0.0-1.0); EOSINOPHILS % 0.2 % (0.0-6.0); HEMATOCRIT 36.7 % (34.2-44.1); LYMPHOCYTES # (AUTO) 1.5 (1.0-3.2); LYMPHOCYTES % 18.9 % (18.0-39.1); MEAN CORPUSCULAR HEMOGLOBIN 30.5 pg (28-32); MEAN CORPUSCULAR HGB CONC 32.7 g/dL (31-35); MEAN CORPUSCULAR VOLUME 93.1 fL (81-99); MONOCYTES # (AUTO) 0.5 (0.2-0.8); MONOCYTES % 6.4 % (4.4-11.3); NEUTROPHILS % 73.4 % (38.7-80.0); PLATELET COUNT 214 x10e3/uL (140-360); RED BLOOD COUNT 3.94 x10e6/uL (3.6-5.1); RED CELL DISTRIBUTION WIDTH 13.4 % (11.7-14.4); WHITE BLOOD COUNT 8.13 x10e3/uL (4.8-10.8)
[2024-09-05 04:37] LABS: ALBUMIN 3.7 g/dL (3.5-5.0); ALBUMIN/GLOBULIN RATIO 0.9 (0.8-2.0); ANION GAP 29.5 mmol/L (8-16); BILIRUBIN,TOTAL 1.2 mg/dL (0.2-1.2); CALCIUM 9.7 mg/dL (8.4-10.2); CREATININE, SERUM 2.1 mg/dL (0.57-1.11); POTASSIUM 4.5 mmol/L (3.5-5.1); TOTAL PROTEIN 7.6 g/dL (6.5-8.1)
[2024-09-05] MEDS ORDERED: PIPERACILLIN/TAZOBACTAM SOD 2.25 GM VIAL ONE (05:24)
[2024-09-05] MEDS ORDERED: SODIUM CHLORIDE 0.9% 1000ML 1,000 ML IV SCH (06:00)
[2024-09-05] MEDS ORDERED: DEXTROSE 50% SYRINGE 50 ML IV PRN (06:00)
[2024-09-05] MEDS: ONDANSETRON HCL INJ 2MG/ML 2ML 2 MG/ML VIAL IV PRN (07:18)
[2024-09-05 07:27] LABS: BILIRUBIN,URINE NEGATIVE (NEGATIVE); CLARITY,URINE SL CLOUDY (CLEAR); COLOR,URINE YELLOW (YELLOW); GLUCOSE, URINE 500 (NEGATIVE); KETONES,URINE TRACE (NEGATIVE); LEUKOCYTE ESTERASE ,URINE NEGATIVE (NEGATIVE); NITRITE,URINE NEGATIVE (NEGATIVE); PH,URINE 5.5 (5 - 7); PROTEIN,URINE DIPSTICK NEGATIVE (NEGATIVE); URINE UROBILINOGEN 0.2 mg/dL (0.2 - 1)
[2024-09-05 07:28] LABS: BACTERIA,URINE FEW /HPF; EPITHELIAL CELLS,URINE FEW /LPF; RBC,URINE 0-5 /HPF (0-5); WBC,URINE (MAN) 0-5 /HPF (0-5)
[2024-09-05] MEDS: INSULIN REGULAR, HUMAN 100 UNIT/1 ML SQ SCH (07:30)
[2024-09-05] MEDS ORDERED: IVABRADINE HCL5 MG PO (07:31)
[2024-09-05] MEDS ORDERED: MIDODRINE HCL2.5 MG PO (07:31)
[2024-09-05] MEDS: PANTOPRAZOLE SOD 40 MG TABEC PO SCH (08:20)
[2024-09-05] MEDS: PROMETHAZINE 12.5MG/ NACL 0.9% 12.5 MG/50 ML BAG IV ONE (08:20)
[2024-09-05] MEDS: SODIUM BICARBONATE 8.4% SYRING 50 ML in SODIUM CHLORIDE 0.45% 1,000 ML IV ONE (08:25)
[2024-09-05] MEDS: LABETALOL HCL 5 MG/ML 20ML VIAL IV PRN (08:37)
[2024-09-05] MEDS: LABETALOL HCL 5 MG/ML 20ML VIAL IV ONE (11:23)
[2024-09-05] MEDS: METOCLOPRAMIDE HCL 10 MG/2ML VIAL IV SCH (11:24)
[2024-09-05] MEDS: LABETALOL HCL 5 MG/ML 20ML VIAL IV STA (11:41)
[2024-09-05] MEDS ORDERED: METOCLOPRAMIDE HCL 10 MG/2ML VIAL IV SCH (12:00)
[2024-09-05 17:27] LABS: ANION GAP 25.3 mmol/L (8-16); CALCIUM 8.5 mg/dL (8.4-10.2); CREATININE, SERUM 1.54 mg/dL (0.57-1.11)
[2024-09-05 17:28] LABS: POTASSIUM 3.3 mmol/L (3.5-5.1)
[2024-09-05] MEDS: SODIUM BICARBONATE 8.4% SYRING 50 ML in SODIUM CHLORIDE 0.45% 1,000 ML IV SCH (18:25)
[2024-09-05] MEDS: MUPIROCIN 2% OINT 22 GM TUBE TOP SCH (20:38)
[2024-09-06] VITALS (21 sets, daily range): BP systolic 90–174; BP diastolic 54–98; PULSE 94–133; RESP 11–27; TEMP 97.1–98.3; O2SAT 94–100
[2024-09-06 07:23] LABS: BASOPHILS % 0.3 % (0.0-1.0); HEMATOCRIT 32.6 % (34.2-44.1); HEMOGLOBIN 11.1 g/dL (12.0-16.0); LYMPHOCYTES # (AUTO) 2.3 (1.0-3.2); LYMPHOCYTES % 25.3 % (18.0-39.1); MEAN CORPUSCULAR HEMOGLOBIN 30.3 pg (28-32); MEAN CORPUSCULAR VOLUME 89.1 fL (81-99); MONOCYTES # (AUTO) 1.1 (0.2-0.8); MONOCYTES % 12.6 % (4.4-11.3); NEUTROPHILS # (AUTO) 5.6 (2.1-6.9); NEUTROPHILS % 61.6 % (38.7-80.0); PLATELET COUNT 189 x10e3/uL (140-360); RED BLOOD COUNT 3.66 x10e6/uL (3.6-5.1); RED CELL DISTRIBUTION WIDTH 13.3 % (11.7-14.4); WHITE BLOOD COUNT 9.06 x10e3/uL (4.8-10.8)
[2024-09-06 07:49] LABS: ALBUMIN 3.4 g/dL (3.5-5.0); ANION GAP 42.9 mmol/L (8-16); BILIRUBIN,TOTAL 1.3 mg/dL (0.2-1.2); CALCIUM 8.3 mg/dL (8.4-10.2); CREATININE, SERUM 1.42 mg/dL (0.57-1.11); TOTAL PROTEIN 6.9 g/dL (6.5-8.1)
[2024-09-06 07:50] LABS: POTASSIUM 2.9 mmol/L (3.5-5.1)
[2024-09-06] MEDS: POTASSIUM CHLORIDE 20 MEQ TAB CR PO ONE (08:34)
[2024-09-06] MEDS: CARVEDILOL 12.5 MG TAB PO SCH (08:35)
[2024-09-06] MEDS: LABETALOL HCL 5 MG/ML 20ML VIAL IV PRN (13:40)
[2024-09-06] MEDS ORDERED: PIPERACILLIN/TAZOBACTAM SOD 2.25 GM VIAL ONE (13:42)
[2024-09-06] MEDS ORDERED: PROPOFOL IV EMULSION 10 MG/ML 20 ML VIAL ONE (14:52)
[2024-09-06] MEDS ORDERED: LIDOCAINE HCL 2% LOCAL INJ 5 ML SDV VIAL INJ ONE (14:52)
[2024-09-06] MEDS ORDERED: FENTANYL CITRATE/PF 100MCG/2 ML INJ ONE (15:27)
[2024-09-06] MEDS ORDERED: METOCLOPRAMIDE HCL 10 MG/2ML VIAL ONE ×2 (15:42→15:49)
[2024-09-07] VITALS (28 sets, daily range): BP systolic 110–191; BP diastolic 60–110; PULSE 90–113; RESP 9–28; TEMP 97.4–98.4; O2SAT 100
[2024-09-08] VITALS (11 sets, daily range): BP systolic 121–176; BP diastolic 63–93; PULSE 88–99; RESP 16–19; TEMP 98–98.6; O2SAT 97–100
[2024-09-08 06:20] LABS: BASOPHILS % 0.5 % (0.0-1.0); EOSINOPHILS # (AUTO) 0.1 (0.0-0.4); EOSINOPHILS % 1.4 % (0.0-6.0); HEMATOCRIT 27.9 % (34.2-44.1); HEMOGLOBIN 9.6 g/dL (12.0-16.0); LYMPHOCYTES # (AUTO) 2.5 (1.0-3.2); LYMPHOCYTES % 32.1 % (18.0-39.1); MEAN CORPUSCULAR HEMOGLOBIN 30.4 pg (28-32); MEAN CORPUSCULAR HGB CONC 34.4 g/dL (31-35); MEAN CORPUSCULAR VOLUME 88.3 fL (81-99); MONOCYTES # (AUTO) 0.9 (0.2-0.8); MONOCYTES % 11.4 % (4.4-11.3); NEUTROPHILS # (AUTO) 4.2 (2.1-6.9); NEUTROPHILS % 54.3 % (38.7-80.0); PLATELET COUNT 142 x10e3/uL (140-360); RED BLOOD COUNT 3.16 x10e6/uL (3.6-5.1); RED CELL DISTRIBUTION WIDTH 13.5 % (11.7-14.4); WHITE BLOOD COUNT 7.69 x10e3/uL (4.8-10.8)
[2024-09-08 07:10] LABS: ALBUMIN 2.7 g/dL (3.5-5.0); ANION GAP 14.1 mmol/L (8-16); BILIRUBIN,TOTAL 0.9 mg/dL (0.2-1.2); CALCIUM 8.5 mg/dL (8.4-10.2); CREATININE, SERUM 1.27 mg/dL (0.57-1.11); TOTAL PROTEIN 5.5 g/dL (6.5-8.1)
[2024-09-08 07:11] LABS: POTASSIUM 3.1 mmol/L (3.5-5.1)
[2024-09-09 03:05] VITALS: BP 125/62; PULSE 91; RESP 18; TEMP 98.5; O2SAT 98
[2024-09-09 07:31] VITALS: PULSE 98; RESP 16; O2SAT 96
[2024-09-09 08:36] VITALS: BP 128/72; PULSE 87; RESP 18; TEMP 97.8; O2SAT 100
[2024-09-09 08:55] VITALS: BP 132/86; PULSE 84
== END 2024-09-09 10:57 | disposition home or self-care (01) | DRG 683 ==
LOC: ER 03:52 → ERHOLD 05:55 → ICU 06:20 → MED/SURG3 09-07 20:31
PROVIDERS: ADMIT Family Medicine; ATTEND Family Medicine
PROC: 0D778ZZ Dilation of Stomach, Pylorus, Via Natural or Artificial Opening Endoscopic (ICD-10-PCS; 2024-09-06)
PROC: 0DB98ZX Excision of Duodenum, Via Natural or Artificial Opening Endoscopic, Diagnostic (ICD-10-PCS; 2024-09-06)
PROC: 0DB68ZX Excision of Stomach, Via Natural or Artificial Opening Endoscopic, Diagnostic (ICD-10-PCS; principal; 2024-09-06 15:37)
PROC: 0DB78ZX Excision of Stomach, Pylorus, Via Natural or Artificial Opening Endoscopic, Diagnostic (ICD-10-PCS; 2024-09-06 15:37)
DX: N17.9 Acute kidney failure, unspecified (principal); E87.20 Acidosis, unspecified; K52.9 Noninfective gastroenteritis and colitis, unspecified; E11.43 Type 2 diabetes mellitus with diabetic autonomic (poly)neuropathy; K31.84 Gastroparesis; I10 Essential (primary) hypertension; R00.0 Tachycardia, unspecified; E86.0 Dehydration; K21.00 Gastro-esophageal reflux disease with esophagitis, without bleeding; F41.9 Anxiety disorder, unspecified; Z11.52 Encounter for screening for COVID-19; Z79.84 Long term (current) use of oral hypoglycemic drugs; Z90.49 Acquired absence of other specified parts of digestive tract; Z90.710 Acquired absence of both cervix and uterus; E87.6 Hypokalemia
CPT/HCPCS: 0223U; 36415; 43239; 43450; 70450; 71045; 74176; 80048; 80053; 81001; 82550; 82948; 83605; 83690; 84132; 84484; 85025; 87040; 87420; 88305; 88342; 93005; 94760; 94799; 99252; 99284; J2003; J2405; J2470; J2543; J2550; J2765; J7030

== ENCOUNTER 2025-01-12 00:28 | Emergency (ER) | payer MEDICARE ==
[~2025-01-12] VITALS: Ht 157.5 cm; Wt 56.7 kg
[~2025-01-12 00:28] MED LIST changes: +IVABRADINE HCL5 MG PO; +MIDODRINE HCL2.5 MG PO
[2025-01-12 00:35] VITALS: TEMP 98.8
[2025-01-12 01:12] LABS: BASOPHILS # (AUTO) 0.1 (0.0-0.1); BASOPHILS % 0.7 % (0.0-1.0); EOSINOPHILS # (AUTO) 0.1 (0.0-0.4); EOSINOPHILS % 1.4 % (0.0-6.0); HEMATOCRIT 30.7 % (34.2-44.1); HEMOGLOBIN 10.7 g/dL (12.0-16.0); LYMPHOCYTES # (AUTO) 1.3 (1.0-3.2); LYMPHOCYTES % 14.1 % (18.0-39.1); MEAN CORPUSCULAR HEMOGLOBIN 30.6 pg (28-32); MEAN CORPUSCULAR HGB CONC 34.9 g/dL (31-35); MEAN CORPUSCULAR VOLUME 87.7 fL (81-99); MONOCYTES % 11.2 % (4.4-11.3); NEUTROPHILS # (AUTO) 6.6 (2.1-6.9); NEUTROPHILS % 72.3 % (38.7-80.0); PLATELET COUNT 225 x10e3/uL (140-360); RED CELL DISTRIBUTION WIDTH 13.2 % (11.7-14.4); WHITE BLOOD COUNT 9.19 x10e3/uL (4.8-10.8)
[2025-01-12] MEDS: Morphine 4mg INJECTION 4 MG/ML INJ IV STA ×2 (01:14→01:19)
[2025-01-12] MEDS: ONDANSETRON HCL INJ 2MG/ML 2ML 2 MG/ML VIAL IV STA ×2 (01:14→01:19)
[2025-01-12] MEDS: SODIUM CHLORIDE 0.9% 1000ML 1,000 ML IV STA (01:19)
[2025-01-12] MEDS ORDERED: IOPAMIDOL 370 MG/ML 100 ML INFUS..BTL INJ ONE (01:35)
[2025-01-12 01:46] LABS: ALANINE AMINOTRANSFERASE 56 IU/L (0-55); ALBUMIN 3.6 g/dL (3.5-5.0); ALKALINE PHOSPHATASE 171 IU/L (40-150); ANION GAP 18.5 mmol/L (8-16); BILIRUBIN,TOTAL 0.9 mg/dL (0.2-1.2); BLOOD UREA NITROGEN 38 mg/dL (7-26); BUN/CREATININE RATIO 27 (6-25); CALCIUM 9.2 mg/dL (8.4-10.2); CARBON DIOXIDE 27 mmol/L (22-29); CHLORIDE 97 mmol/L (98-107); CREATINE KINASE 52 IU/L (29-168); CREATININE, SERUM 1.41 mg/dL (0.57-1.11); EST GLOMERULAR FILTRATION RATE 41 ML/MIN (>=60); GLUCOSE 116 mg/dL (74-118); LIPASE 75 U/L (8-78); POTASSIUM 3.5 mmol/L (3.5-5.1); SODIUM 139 mmol/L (136-145); TOTAL PROTEIN 7.3 g/dL (6.5-8.1)
[2025-01-12 02:23] LABS: BILIRUBIN,URINE NEGATIVE (NEGATIVE); CLARITY,URINE CLEAR (CLEAR); COLOR,URINE YELLOW (YELLOW); GLUCOSE, URINE 500 (NEGATIVE); KETONES,URINE NEGATIVE (NEGATIVE); LEUKOCYTE ESTERASE ,URINE NEGATIVE (NEGATIVE); NITRITE,URINE NEGATIVE (NEGATIVE); PH,URINE 7 (5 - 7); PROTEIN,URINE DIPSTICK NEGATIVE (NEGATIVE); URINE UROBILINOGEN 1 mg/dL (0.2 - 1)
[2025-01-12 02:31] LABS: BACTERIA,URINE FEW /HPF; EPITHELIAL CELLS,URINE MODERATE /LPF; RBC,URINE 0-5 /HPF (0-5); WBC,URINE (MAN) 0-5 /HPF (0-5)
[2025-01-12 03:00] VITALS: PULSE 118; RESP 18; O2SAT 100
[2025-01-12 04:54] LABS: TROPONIN I < 0.001 ng/mL (0-0.300)
== END 2025-01-12 04:00 | disposition home or self-care (01) ==
LOC: ER 00:35
DX: R10.13 Epigastric pain (principal); R94.4 Abnormal results of kidney function studies; R11.0 Nausea; I10 Essential (primary) hypertension; E11.9 Type 2 diabetes mellitus without complications; K21.9 Gastro-esophageal reflux disease without esophagitis; F41.9 Anxiety disorder, unspecified
CPT/HCPCS: 36415; 74177; 80053; 81001; 82550; 83690; 84484; 85025; 93005; 99284; J2270; J2405; J7030; Q9967

== ENCOUNTER 2025-07-03 18:42 | Inpatient (IN) | payer MEDICARE ==
[~2025-07-03] VITALS: Ht 157.5 cm; Wt 52.4 kg
[2025-07-03 19:37] VITALS: TEMP 98
[2025-07-03] MEDS: SODIUM CHLORIDE 0.9% 1000ML 1,000 ML IV STA (20:15)
[2025-07-03] MEDS: ONDANSETRON HCL INJ 2MG/ML 2ML 2 MG/ML VIAL IV STA (20:16)
[2025-07-03] MEDS: Morphine 4mg INJECTION 4 MG/ML INJ IV STA (20:16)
[2025-07-03 20:30] LABS: BASOPHILS % 0.5 % (0.0-1.0); EOSINOPHILS % 0.3 % (0.0-6.0); LYMPHOCYTES % 19.6 % (18.0-39.1); MONOCYTES % 11.2 % (4.4-11.3); NEUTROPHILS % 68.2 % (38.7-80.0); RED CELL DISTRIBUTION WIDTH 12.6 % (11.7-14.4)
[2025-07-03 20:36] LABS: LEUKOCYTE ESTERASE ,URINE NEGATIVE (NEGATIVE); PROTEIN,URINE DIPSTICK 1+ (NEGATIVE); URINE UROBILINOGEN 0.2 mg/dL (0.2 - 1)
[2025-07-03 20:48] LABS: EPITHELIAL CELLS,URINE FEW /LPF; WBC,URINE (MAN) 0-5 /HPF (0-5)
[2025-07-03 20:51] LABS: EST GLOMERULAR FILTRATION RATE 16.0 ML/MIN (>=60)
[2025-07-03] MEDS: SODIUM CHLORIDE 0.9% 1000ML 1,000 ML IV SCH (21:46)
[2025-07-03 21:49] VITALS: PULSE 108; RESP 19
[2025-07-04] VITALS (10 sets, daily range): BP systolic 148–173; BP diastolic 78–86; PULSE 105–114; RESP 16–19; TEMP 97.8–98.6; O2SAT 98–100
[2025-07-04] MEDS: Morphine 4mg INJECTION 4 MG/ML INJ IV PRN (03:04)
[2025-07-04] MEDS: ONDANSETRON HCL INJ 2MG/ML 2ML 2 MG/ML VIAL IV PRN (03:04)
[2025-07-04 05:35] LABS: BASOPHILS % 0.9 % (0.0-1.0); EOSINOPHILS % 0.9 % (0.0-6.0); LYMPHOCYTES % 24.6 % (18.0-39.1); MONOCYTES % 13.7 % (4.4-11.3); NEUTROPHILS % 59.5 % (38.7-80.0); RED CELL DISTRIBUTION WIDTH 12.6 % (11.7-14.4)
[2025-07-04 06:06] LABS: EST GLOMERULAR FILTRATION RATE 23.0 ML/MIN (>=60)
[2025-07-04] MEDS: ACETAMINOPHEN 325 MG TAB PO PRN (18:03)
[2025-07-05] VITALS: BP 179/88; PULSE 111; RESP 16; TEMP 97.9; O2SAT 100
[2025-07-05] MEDS: ZOLPIDEM TARTRATE 5 MG TAB PO ONE (02:36)
[2025-07-05] MEDS: CLONIDINE HCL 0.1 MG TAB PO ONE ×2 (05:54→05:56)
[2025-07-05 05:55] VITALS: BP 168/98; PULSE 101; RESP 18; TEMP 98.1; O2SAT 97
[2025-07-05 06:10] LABS: BASOPHILS % 0.7 % (0.0-1.0); EOSINOPHILS % 1.3 % (0.0-6.0); LYMPHOCYTES % 31.2 % (18.0-39.1); MONOCYTES % 13.2 % (4.4-11.3); NEUTROPHILS % 53.3 % (38.7-80.0); RED CELL DISTRIBUTION WIDTH 12.4 % (11.7-14.4)
[2025-07-05 06:56] LABS: EST GLOMERULAR FILTRATION RATE 40.0 ML/MIN (>=60)
[2025-07-05 07:39] VITALS: BP 162/92; PULSE 100; RESP 21; TEMP 97.4; O2SAT 100
[2025-07-05 07:56] VITALS: BP 162/92; PULSE 100; RESP 21; TEMP 97.4; O2SAT 100
[2025-07-05 11:14] VITALS: BP 132/85; PULSE 95; RESP 17; TEMP 97.9; O2SAT 99
[2025-07-05 15:18] LABS: TOTAL PROTEIN, URINE 9.9 mg/dL (1-14)
[2025-07-05 15:30] VITALS: BP 142/80; PULSE 98; RESP 19; TEMP 97.4; O2SAT 100
[2025-07-05 17:38] LABS: CREATININE,URINE RANDOM 68.31 mg/dL (47-110)
== END 2025-07-05 18:40 | disposition home or self-care (01) | DRG 641 ==
LOC: ER 18:50 → ERHOLD 21:41 → MED/SURG2 22:31
PROVIDERS: ADMIT Family Medicine; ATTEND Family Medicine
DX: E86.0 Dehydration (principal); N17.9 Acute kidney failure, unspecified; K52.9 Noninfective gastroenteritis and colitis, unspecified; R53.1 Weakness; F41.9 Anxiety disorder, unspecified; K21.9 Gastro-esophageal reflux disease without esophagitis; E11.22 Type 2 diabetes mellitus with diabetic chronic kidney disease; I12.9 Hypertensive chronic kidney disease with stage 1 through stage 4 chronic kidney disease, or unspecified chronic kidney disease; M54.30 Sciatica, unspecified side; N18.31 Chronic kidney disease, stage 3a; F32.A Depression, unspecified; R00.0 Tachycardia, unspecified; Z79.84 Long term (current) use of oral hypoglycemic drugs
CPT/HCPCS: 36415; 74176; 76770; 80053; 81001; 82550; 82570; 82948; 83690; 84156; 84484; 85025; 99284; J2270; J2405; J7030